=== PATIENT | male | born 1955 | race Caucasian/White ===

== ENCOUNTER 2018-04-16 06:45 | Day surgery (SDC) | payer MEDICARE, OTHER ==
[2018-04-16] MEDS ORDERED: Propofol 10 mg/ml Inj (20 ML) ONE ×2 (08:39→08:55)
--- NOTE | 2018-04-16 08:45 | CP.SDSHP ---
Same Day Surgery H & P - History Proposed Procedure: colonoscopy Pre-Op Diagnosis: colitis - Allergies Allergies: Allergies No Known Allergies Allergy (Verified 05/18/15 06:45) - Physical Exam Vital Signs: Vital Signs 04/16/18 07:20 Temperature 98 F Pulse Rate 80 Respiratory 20 Rate Blood Pressure 141/76 O2 Sat by Pulse 100 Oximetry Mental Status: Alert & Oriented x3 Neuro: WNL Heart: WNL Lungs: WNL GI: WNL - {Optional Preform as Required} Abdomen: WNL - Impression Impression: coliitis Pt. Evaluated Today:Candidate for Anesthesia & Procedure: Yes - Date & Time Date: 04/16/18 Time: 08:35 Short Stay Discharge - Short Stay Discharge Admitting Diagnosis/Reason for Visit: COLITIS Disposition: HOME/ ROUTINE
[2018-04-16 10:54] VITALS: TEMP 97
[2018-04-16 11:02] VITALS: BP 109/65; PULSE 68; RESP 18; O2SAT 99
== END 2018-04-16 10:30 | disposition home or self-care (01) ==
LOC: C.ENDO 06:45
PROVIDERS: ATTEND Internal Medicine Gastroenterology
DX: R19.7 Diarrhea, unspecified (principal); K52.89 Other specified noninfective gastroenteritis and colitis; K64.1 Second degree hemorrhoids; K57.30 Diverticulosis of large intestine without perforation or abscess without bleeding; K63.5 Polyp of colon
CPT/HCPCS: 45380; 88305; J2704

== ENCOUNTER 2019-01-27 08:31 | Outpatient (CLI) | payer MEDICARE, OTHER | END 2019-01-27 08:32 | disposition home or self-care (01) | LOC: C.RT 08:31 | DX: R05 Cough (principal) ==

== ENCOUNTER 2019-02-03 10:55 | Outpatient (CLI) | payer MEDICARE, OTHER | END 2019-02-03 10:56 | disposition home or self-care (01) | LOC: C.CTH 10:55 | DX: R91.8 Other nonspecific abnormal finding of lung field (principal) ==